=== PATIENT | male | born 1965 | race Caucasian/White ===

== ENCOUNTER 2023-05-07 00:24 | Emergency (ER) | payer MEDICARE, MEDICAID ==
[~2023-05-07] VITALS: Ht 175.3 cm; Wt 105.2 kg
[~2023-05-07 00:24] MED LIST: CITA40TA22 PO; GABA-529 PO; LISI20TA31 PO; PANT40TA51 PO; SERT25TA74 PO
[2023-05-07 00:41] VITALS: TEMP 98.2; O2SAT 99
[2023-05-07] MEDS ORDERED: CYCLOBENZAPRINE 10MG TABLET PO ONE (01:30)
[2023-05-07] MEDS ORDERED: KETOROLAC 15MG/ML VIAL IM ONE (01:30)
[2023-05-07 01:42] VITALS: BP 171/68; PULSE 70; RESP 16
[2023-05-07] MEDS ORDERED: ACETAMINOPHEN 325MG TABLET PO ONE (02:15)
[2023-05-07] MEDS ORDERED: ACET-2708 MT (02:23)
== END 2023-05-07 02:44 | disposition home or self-care (01) ==
LOC: ER 00:24
DX: R51.9 Headache, unspecified (principal); M54.32 Sciatica, left side; I10 Essential (primary) hypertension; E78.00 Pure hypercholesterolemia, unspecified; E11.9 Type 2 diabetes mellitus without complications; Z88.0 Allergy status to penicillin
CPT/HCPCS: 99283; 96372; J1885

== ENCOUNTER 2023-05-25 23:56 | Emergency (ER) | payer MEDICARE, MEDICAID ==
[~2023-05-25] VITALS: Ht 177.8 cm; Wt 84.0 kg
[~2023-05-25 23:56] MED LIST changes: +ACET-2708 MT
[2023-05-26 00:22] VITALS: O2SAT 100
[2023-05-26] MEDS ORDERED: VANCOMYCIN 1G PREMIX 200 ML IV ONE (02:45)
[2023-05-26] MEDS ORDERED: LEVOFLOXACIN 750MG PREMIX 150 ML IV ONE (02:45)
[2023-05-26 04:13] LABS: BASOPHILS % 1.1 % (0.0-2.0); EOSINOPHILS % 6.5 % (0.0-5.0); HEMATOCRIT. 32.9 % (42.0-52.0); HEMOGLOBIN. 10.8 g/dL (14.0-18.0); LYMPHOCYTES % 16.1 % (20.0-50.0); MEAN CORPUSCULAR HEMOGLOBIN 32.4 pg (28.0-32.0); MEAN CORPUSCULAR HGB CONC 32.7 g/dL (31.0-37.0); MEAN CORPUSCULAR VOLUME 99.1 fL (80.0-94.0); MEAN PLATELET VOLUME 8.7 fl (7.4-10.4); MONOCYTES % 9.7 % (2.0-8.0); NEUTROPHILS % 66.6 % (40.0-76.0); PLATELET 318 x1000/uL (130-400); RED BLOOD CELL COUNT 3.32 mill/uL (4.7-6.1); RED CELL DISTRIBUTION WIDTH 14.7 % (11.6-14.6); WHITE BLOOD COUNT 10.4 x1000/uL (4.5-11.0)
[2023-05-26 04:16] LABS: ALANINE AMINOTRANSFERASE 16 IU/L (10-49); ALBUMIN 4.5 g/dL (3.2-4.8); ASPARTATE AMINOTRANSFERASE 19 IU/L (<34); BILIRUBIN TOTAL 0.3 mg/dL (0.1-1.0); CARBON DIOXIDE 22 mEq/L (21-32); CHLORIDE 98 mEq/L (98-107); GLUCOSE 112 mg/dL (70-105); SODIUM 132 mEq/L (136-145); UREA NITROGEN BLOOD 50 mg/dL (9-23)
[2023-05-26 04:38] LABS: CREATININE 7.5 mg/dL (0.6-1.3)
[2023-05-26] MEDS ORDERED: LORAZEPAM 1MG TABLET PO ONE (05:15)
[2023-05-26] MEDS ORDERED: VANCOMYCIN 1G PREMIX 200 ML IV SCH (07:15)
[2023-05-26 07:52] VITALS: BP 158/70; PULSE 80; RESP 16; TEMP 98.3
== END 2023-05-26 09:30 | disposition home or self-care (01) ==
LOC: ER 05-26 00:11
DX: L97.529 Non-pressure chronic ulcer of other part of left foot with unspecified severity (principal); I12.0 Hypertensive chronic kidney disease with stage 5 chronic kidney disease or end stage renal disease; E11.9 Type 2 diabetes mellitus without complications; N18.6 End stage renal disease; D64.9 Anemia, unspecified; Z99.2 Dependence on renal dialysis; Z98.890 Other specified postprocedural states; Z88.0 Allergy status to penicillin; Z88.8 Allergy status to other drugs, medicaments and biological substances
CPT/HCPCS: 99285; 93970; 96365; 71045; 96366; 80053; 83605; 85025; 87040; 36415; 84145; 73620; J3370; J1956

== ENCOUNTER 2023-05-31 17:17 | Emergency (ER) | payer MEDICARE, MEDICAID ==
[~2023-05-31] VITALS: Ht 170.2 cm; Wt 95.0 kg
[2023-05-31 17:36] VITALS: O2SAT 97
[2023-05-31] MEDS ORDERED: MAGNESIUM/ALUMINUM HYDROXIDE/SIMETHICONE 30ML UDC PO ONE (17:45)
[2023-05-31] MEDS ORDERED: PANTOPRAZOLE 40MG DR TABLET PO ONE (17:45)
[2023-05-31 17:55] LABS: BASOPHILS % 0.7 % (0.0-2.0); EOSINOPHILS % 4.6 % (0.0-5.0); HEMATOCRIT. 32.4 % (42.0-52.0); LYMPHOCYTES % 13.4 % (20.0-50.0); MEAN CORPUSCULAR HEMOGLOBIN 32.7 pg (28.0-32.0); MEAN CORPUSCULAR HGB CONC 33.8 g/dL (31.0-37.0); MEAN CORPUSCULAR VOLUME 96.7 fL (80.0-94.0); MONOCYTES % 10.4 % (2.0-8.0); NEUTROPHILS % 70.9 % (40.0-76.0); PLATELET 295 x1000/uL (130-400); RED BLOOD CELL COUNT 3.35 mill/uL (4.7-6.1); RED CELL DISTRIBUTION WIDTH 14.2 % (11.6-14.6); WHITE BLOOD COUNT 6.6 x1000/uL (4.5-11.0)
[2023-05-31 18:03] LABS: INR 1.1; PROTHROMBIN TIME 11.4 sec (9.6-11.0)
[2023-05-31 18:10] LABS: ALANINE AMINOTRANSFERASE 30 IU/L (10-49); ALBUMIN 4.4 g/dL (3.2-4.8); ASPARTATE AMINOTRANSFERASE 25 IU/L (<34); BILIRUBIN TOTAL 0.2 mg/dL (0.1-1.0); CALCIUM 8.6 mg/dL (8.7-10.4); CARBON DIOXIDE 29 mEq/L (21-32); CHLORIDE 98 mEq/L (98-107); GLUCOSE 124 mg/dL (70-105); POTASSIUM 3.8 mEq/L (3.5-5.1); SODIUM 136 mEq/L (136-145); TROPONIN I HIGH SENSITIVITY 34 ng/L (3.0-53); UREA NITROGEN BLOOD 24 mg/dL (9-23)
[2023-05-31 18:16] LABS: CREATININE 5.1 mg/dL (0.6-1.3)
[2023-05-31] MEDS ORDERED: LORAZEPAM 0.5MG TABLET PO ONE (20:45)
[2023-05-31 21:57] VITALS: BP 157/76; PULSE 74; RESP 20; TEMP 98.2
[2023-05-31 22:39] LABS: CLARITY URINE CLEAR (CLEAR); COLOR URINE YELLOW (YELLOW); PH URINE 6.5 (4.5-8.0); PROTEIN URINE 3+ (NEGATIVE)
[2023-05-31 22:40] LABS: GLUCOSE URINE 1+ (NEGATIVE); KETONES URINE NEGATIVE (NEGATIVE); LEUKOCYTE ESTERASE URINE NEGATIVE (NEGATIVE); NITRITE URINE NEGATIVE (NEGATIVE); OCCULT BLOOD URINE 1+ (NEGATIVE); UROBILINOGEN URINE 0.2 E.U./dL (0.2-1.0)
[2023-05-31 22:47] LABS: BACTERIA URINE 2+; FINE GRANULAR CASTS URINE 0-5 /lpf; SQUAMOUS EPITHELIAL CELL URINE FEW /lpf (RARE/1+); WBC URINE 0-2 /hpf (0-2)
== END 2023-05-31 22:00 | disposition home or self-care (01) ==
LOC: ER 17:17
DX: K21.9 Gastro-esophageal reflux disease without esophagitis (principal); E11.22 Type 2 diabetes mellitus with diabetic chronic kidney disease; I12.0 Hypertensive chronic kidney disease with stage 5 chronic kidney disease or end stage renal disease; N18.6 End stage renal disease; Z88.0 Allergy status to penicillin; Z88.9 Allergy status to unspecified drugs, medicaments and biological substances
CPT/HCPCS: 36415; 71045; 74176; 76705; 80053; 81003; 83880; 84484; 85025; 93005; 99285

== ENCOUNTER 2023-11-20 13:25 | Emergency (ER) | payer MEDICARE, MEDICAID ==
[~2023-11-20] VITALS: Ht 167.6 cm; Wt 104.0 kg
[2023-11-20 13:28] VITALS: TEMP 97.9; O2SAT 97
[2023-11-20 14:21] LABS: BASOPHILS % 1.3 % (0.0-2.0); EOSINOPHILS % 11.9 % (0.0-5.0); HEMATOCRIT. 26.5 % (42.0-52.0); LYMPHOCYTES % 15.7 % (20.0-50.0); MEAN CORPUSCULAR HGB CONC 34.1 g/dL (31.0-37.0); MEAN CORPUSCULAR VOLUME 96.7 fL (80.0-94.0); MEAN PLATELET VOLUME 8.5 fl (7.4-10.4); MONOCYTES % 10.7 % (2.0-8.0); NEUTROPHILS % 60.4 % (40.0-76.0); PLATELET 230 x1000/uL (130-400); RED BLOOD CELL COUNT 2.74 mill/uL (4.7-6.1); RED CELL DISTRIBUTION WIDTH 14.5 % (11.6-14.6); WHITE BLOOD COUNT 7.9 x1000/uL (4.5-11.0)
[2023-11-20 14:29] LABS: CHLORIDE 100 mEq/L (98-107); POTASSIUM 4.5 mEq/L (3.5-5.1); SODIUM 135 mEq/L (136-145)
[2023-11-20 14:30] LABS: CALCIUM 8.8 mg/dL (8.7-10.4); CARBON DIOXIDE 27 mEq/L (21-32)
[2023-11-20 14:35] LABS: GLUCOSE 159 mg/dL (70-105); UREA NITROGEN BLOOD 35 mg/dL (9-23)
[2023-11-20 14:36] LABS: TROPONIN I HIGH SENSITIVITY 33 ng/L (3.0-53)
[2023-11-20 14:47] LABS: CREATININE 6.8 mg/dL (0.6-1.3)
[2023-11-20 15:27] LABS: INR 1.1; PARTIAL THROMBOPLASTIN TIME 28.5 sec (23.4-31.0); PROTHROMBIN TIME 11.7 sec (9.6-11.0)
[2023-11-20] MEDS: CALCIUM ACETATE 667MG CAPSULE PO SCH (16:54)
[2023-11-20] MEDS: FOLIC ACID/VITAMIN B COMP W-C TABLET PO SCH (16:54)
[2023-11-20] MEDS ORDERED: CALCIUM ACETATE 667MG CAPSULE PO SCH (17:00)
[2023-11-20] MEDS ORDERED: LIDOCAINE HCL/PF 1% 10 MG/ML 5ML VIAL INFIL ONE (17:15)
[2023-11-20 18:02] VITALS: BP 107/72; PULSE 71; RESP 18
[2023-11-21] MEDS ORDERED: EPOETIN ALFA 4000UNITS/ML VIAL SUBCUT SCH (21:00)
== END 2023-11-20 18:27 | disposition home or self-care (01) ==
LOC: ER 13:40
DX: K27.4 Chronic or unspecified peptic ulcer, site unspecified, with hemorrhage (principal); I49.9 Cardiac arrhythmia, unspecified; Z88.0 Allergy status to penicillin
CPT/HCPCS: 12001; 36415; 71045; 80048; 84484; 85025; 86850; 86900; 93005; 99285

== ENCOUNTER 2023-11-28 10:05 | Emergency (ER) | payer MEDICAID, MEDICARE ==
[~2023-11-28] VITALS: Ht 177.8 cm; Wt 115.0 kg
[2023-11-28 10:11] VITALS: O2SAT 98
[2023-11-28] MEDS ORDERED: BACITRACIN 14GM TUBE TOP ONE (10:45)
[2023-11-28] MEDS: BACITRACIN 14GM TUBE TOP ONE (10:57)
[2023-11-28 10:59] VITALS: BP 141/88; PULSE 90; RESP 18; TEMP 98.2
== END 2023-11-28 11:12 | disposition home or self-care (01) ==
LOC: ER 10:05
DX: S21.111D Laceration without foreign body of right front wall of thorax without penetration into thoracic cavity, subsequent encounter (principal); D64.9 Anemia, unspecified; F41.9 Anxiety disorder, unspecified; E11.9 Type 2 diabetes mellitus without complications; I10 Essential (primary) hypertension; Z99.2 Dependence on renal dialysis; X58.XXXD Exposure to other specified factors, subsequent encounter
CPT/HCPCS: 99281

== ENCOUNTER 2023-12-17 20:25 | Emergency (ER) | payer MEDICARE, MEDICAID ==
[~2023-12-17] VITALS: Ht 175.3 cm; Wt 114.0 kg
[2023-12-17 20:32] VITALS: O2SAT 100
[2023-12-17 21:16] LABS: BASOPHILS % 1.4 % (0.0-2.0); HEMOGLOBIN. 10.2 g/dL (14.0-18.0); LYMPHOCYTES % 15.8 % (20.0-50.0); MEAN CORPUSCULAR HEMOGLOBIN 32.5 pg (28.0-32.0); MEAN CORPUSCULAR HGB CONC 32.9 g/dL (31.0-37.0); MEAN CORPUSCULAR VOLUME 98.7 fL (80.0-94.0); MEAN PLATELET VOLUME 7.9 fl (7.4-10.4); MONOCYTES % 12.9 % (2.0-8.0); NEUTROPHILS % 61.9 % (40.0-76.0); PLATELET 209 x1000/uL (130-400); RED BLOOD CELL COUNT 3.14 mill/uL (4.7-6.1); RED CELL DISTRIBUTION WIDTH 15.1 % (11.6-14.6); WHITE BLOOD COUNT 5.9 x1000/uL (4.5-11.0)
[2023-12-17 21:26] LABS: CALCIUM 8.6 mg/dL (8.7-10.4)
[2023-12-17 21:39] LABS: CREATININE 8.9 mg/dL (0.6-1.3)
[2023-12-18 00:07] VITALS: BP 165/70; PULSE 87; RESP 20; TEMP 98
== END 2023-12-18 02:30 | disposition left against medical advice (07) ==
LOC: ER 20:25 → CANBEDREQ 12-18 02:16 → ER 12-18 02:30
DX: I82.402 Acute embolism and thrombosis of unspecified deep veins of left lower extremity (principal); I12.0 Hypertensive chronic kidney disease with stage 5 chronic kidney disease or end stage renal disease; E11.22 Type 2 diabetes mellitus with diabetic chronic kidney disease; N18.6 End stage renal disease; D64.9 Anemia, unspecified; F41.9 Anxiety disorder, unspecified; Z99.2 Dependence on renal dialysis; Z79.899 Other long term (current) drug therapy
CPT/HCPCS: 36415; 80048; 83880; 85025; 93970; 99284